=== PATIENT | female | born 1985 | race Caucasian/White ===

== ENCOUNTER 2017-01-28 20:52 | Emergency (ER) | payer OTHER ==
[2017-01-28 21:29] VITALS: BP 118/88; PULSE 63; TEMP 97.7; BMI 21.7
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
== END 2017-01-28 23:31 | disposition home or self-care (01) ==
LOC: FER 20:52
DX: S16.1XXA Strain of muscle, fascia and tendon at neck level, initial encounter (principal); F41.0 Panic disorder [episodic paroxysmal anxiety]; V43.52XA Car driver injured in collision with other type car in traffic accident, initial encounter; Y93.89 Activity, other specified; Y92.410 Unspecified street and highway as the place of occurrence of the external cause
CPT/HCPCS: 72050-TC; 84703; 99283-25